=== PATIENT | male | born 1985 | race Caucasian/White ===

== ENCOUNTER 2017-09-15 11:33 | Emergency (ER) | payer SELFPAY ==
[~2017-09-15] VITALS: Ht 170.2 cm; Wt 75.0 kg
[2017-09-15] MEDS ORDERED: KETOROLAC TROMETHAMINE 60 MG/2 ML VIAL IM ONE (12:30)
[2017-09-15 13:03] VITALS: BP 132/77
== END 2017-09-15 13:05 | disposition home or self-care (01) ==
LOC: EMS 11:37
DX: M79.602 Pain in left arm (principal); F17.210 Nicotine dependence, cigarettes, uncomplicated; Z87.81 Personal history of (healed) traumatic fracture
CPT/HCPCS: 96372; 99283; 99406; J1885